=== PATIENT | female | born 1960 | race Caucasian/White ===

== ENCOUNTER → 2017-11-12 | Outpatient (CLI) | payer BC ==
[~2017-11-12] MED LIST: NORT10CA2 PO
[2017-11-12 10:10] LABS: BASO % 0.9 %; BASO ABS # 0.04 K/uL (0-0.2); EOS ABS # 0.09 K/uL (0-0.5); HEMATOCRIT 38.4 % (37-47); HEMOGLOBIN 12.8 g/dL (12.0-16.0); LYMPH % 38.3 %; LYMPH ABS # 1.71 K/uL (1.2-3.4); MEAN CELL VOLUME 89.1 fL (80-100); MEAN CORPUSCULAR HEMOGLOBIN 29.7 pg (25-34); MEAN CORPUSCULAR HGB CONC 33.3 g/dl (32-36); MEAN PLATELET VOLUME 10.9 fL (7.4-10.4); MONO % 10.1 %; MONO ABS # 0.45 K/uL (0.11-0.59); NEUT % 48.7 %; NEUT ABS # 2.18 K/uL (1.4-6.5); PLATELET COUNT 191 K/uL (130-400); RED CELL DISTRIBUTION WIDTH CV 13.8 % (11.5-14.5); WHITE BLOOD COUNT 4.47 K/uL (4.8-10.8)
[2017-11-12 10:40] LABS: ALBUMIN 3.9 gm/dl (3.4-5.0); ALT/SGPT 27 U/L (12-78); BLOOD UREA NITROGEN 21 mg/dl (7-18); CALCIUM 8.9 mg/dl (8.5-10.1); CARBON DIOXIDE 26 mmol/L (21-32); CHOLESTEROL 191 mg/dl (0-200); CREATININE 0.69 mg/dl (0.60-1.20); GLUCOSE 78 mg/dl (70-99); POTASSIUM 3.8 mmol/L (3.5-5.1); SODIUM 141 mmol/L (136-145)
[2017-11-12 10:42] LABS: ALKALINE PHOSPHATASE 79 U/L (45-117); AST/SGOT 20 U/L (15-37); LDL CHOLESTEROL CALCULATED 95 mg/dl; TOTAL PROTEIN 7.1 gm/dl (6.4-8.2)
== END | disposition home or self-care (01) ==
LOC: C.LAB1850 09:22
PROVIDERS: ATTEND Physician Assistant
DX: Z13.220 Encounter for screening for lipoid disorders (principal); G43.909 Migraine, unspecified, not intractable, without status migrainosus

== ENCOUNTER → 2017-12-24 | Outpatient (CLI) | payer BC ==
[~2017-12-24] MED LIST changes: +GADAVIST IV PRN
--- NOTE | 2017-12-24 10:42 | DIAGNOSTIC IMAGING REPORT ---
BRAIN COMBO HISTORY: 57 years-old Female [id number] Cranial nerve disorder acute migraine headache with right-sided facial droop COMPARISON: CT head 02/15/2014, MRI brain 07/11/2010 TECHNIQUE: Multiplanar multisequence MRI of the brain was obtained both with and without the use of 7.5 mL Gadavist FINDINGS: Biological Aide localizer images demonstrate no gross abnormality. There is no restricted diffusion to suggest acute or subacute infarction. The midline structures including the corpus callosum, brainstem, optic chiasm, pituitary and pineal glands appear unremarkable the sagittal T1 series. There is no cerebellar tonsillar herniation. Degenerative changes of the imaged cervical spine are noted. No acute intracranial hemorrhage, midline shift, abnormal extra-axial collections, hydrocephalus or intracranial mass. There are a few punctate foci of T2/FLAIR prolongation within the subcortical and periventricular white matter. Major flow voids at the level of the skull base appear unremarkable. Mina cisterna magna redemonstrated. Orbits are symmetric and within normal limits. Mastoid air cells are clear. Minimal mucosal thickening about the ethmoid air cells with 12 mm area of polypoid mucosal thickening about the anterior right axillary antrum. Skull and soft tissues are within normal limits. There is no abnormal intra-axial or extra-axial enhancement identified. IMPRESSION: 1. No acute intracranial abnormality or abnormal enhancement identified. 2. A few scattered punctate foci of T2/FLAIR prolongation within the subcortical and periventricular white matter suggests chronic microvascular ischemic changes. 3. Mild paranasal sinus disease as above. The above report was generated using voice recognition software. It may contain grammatical, syntax or spelling errors. Electronically signed by: Adrian Mahmood M.D. 12/24/2017 10:40 AM Dictated Date/Time: 12/24/2017 10:32 AM
== END | disposition home or self-care (01) ==
LOC: C.MRIBC 09:33
PROVIDERS: ATTEND Psychiatry & Neurology Neurology
DX: G52.9 Cranial nerve disorder, unspecified (principal); R51 Headache

== ENCOUNTER → 2018-03-18 | Outpatient (CLI) | payer BC ==
[~2018-03-18] MED LIST changes: -GADAVIST IV PRN
== END | disposition home or self-care (01) ==
LOC: C.PAPS 13:36
PROVIDERS: ATTEND Obstetrics & Gynecology
DX: Z01.419 Encounter for gynecological examination (general) (routine) without abnormal findings (principal)